=== PATIENT | male | born 1980 | race Two or more races ===

== ENCOUNTER 2016-12-16 19:29 | Emergency (ER) | payer MEDICAID, OTHER ==
[~2016-12-16] VITALS: Ht 185.4 cm; Wt 72.6 kg
[2016-12-16 21:10] LABS: Basophils # (auto) 0.1 uL; Basophils % (auto) 0.6 % (0.0-2.0); Eosinophils # (auto) 0.2 uL; Eosinophils % (auto) 2.6 % (0.0-7.0); Hematocrit 44.4 % (41.0-53.0); Lymphocytes # (auto) 1.7 uL; Lymphocytes % (auto) 20.3 % (10.0-50.0); Mean Corpuscular Hgb Conc. 33.8 g/dL (32.0-36.0); Mean Corpuscular Volume 85.8 fL (80.0-100.0); Mean Platelet Volume 8.3 fL (7.4-10.4); Monocytes # (auto) 0.3 uL; Neutrophils # (auto) 6.2 uL; Neutrophils % (auto) 72.5 % (37.0-80.0); Platelet Count (auto) 374 10^3/uL (140-450); Red Cell Distribution Width 15.7 % (11.6-16.0); White Blood Cell 8.6 10^3/uL (4.4-10.8)
[2016-12-16 21:33] LABS: Albumin 3.9 g/dL (3.4-5.0); BUN/Creatinine Ratio 18.2; Calcium 9.1 mg/dL (8.5-10.1)
[2016-12-16 21:45] LABS: Bilirubin, Total 0.3 mg/dL (0.2-1.0); Total Protein 7.7 g/dL (6.4-8.2)
[2016-12-17 00:16] LABS: Urine Bilirubin Negative (Negative); Urine Blood Negative /uL (Negative); Urine Color Yellow (Yellow); Urine Glucose Normal (Normal); Urine Ketone TRACE (Negative); Urine Mucus FEW (None Seen); Urine RBC 3 /hpf (0 - 3); Urine Sperm PRESENT /hpf (None Seen); Urine Urobilinogen Normal (Negative); Urine pH 5.5 (5.0-8.0)
[2016-12-17 00:18] LABS: Urine Nitrite POSITIVE (Negative)
[2016-12-17 05:23] VITALS: BP 109/65
[2016-12-17] MEDS ORDERED: HYDROcodone-ACET 10/325MG TAB PO ONE (07:30)
== END 2016-12-17 08:00 | disposition home or self-care (01) ==
LOC: ER 19:48
DX: N39.0 Urinary tract infection, site not specified (principal); R31.9 Hematuria, unspecified; E78.5 Hyperlipidemia, unspecified; I10 Essential (primary) hypertension
CPT/HCPCS: 36415; 80053; 81001; 85025

== ENCOUNTER 2022-01-26 17:16 | Emergency (ER) | payer OTHER, MEDICAID ==
[~2022-01-26] VITALS: Ht 175.3 cm; Wt 86.2 kg
[2022-01-26] MEDS ORDERED: RIVA20TA PO (20:05)
[2022-01-26 21:42] VITALS: BP 111/73
== END 2022-01-26 21:16 | disposition home or self-care (01) ==
LOC: ER 17:16
DX: I82.403 Acute embolism and thrombosis of unspecified deep veins of lower extremity, bilateral (principal)
CPT/HCPCS: 93970

== ENCOUNTER 2022-03-03 17:58 | Emergency (ER) | payer OTHER, MEDICAID ==
[~2022-03-03] VITALS: Ht 175.3 cm; Wt 85.0 kg
[~2022-03-03 17:58] MED LIST: RIVA20TA PO
[2022-03-03 18:51] VITALS: BP 109/68
== END 2022-03-03 23:11 | disposition left against medical advice (07) ==
LOC: ER 17:58
DX: R50.9 Fever, unspecified (principal); Z53.21 Procedure and treatment not carried out due to patient leaving prior to being seen by health care provider

== ENCOUNTER 2022-09-16 15:50 | Inpatient (IN) | payer OTHER, MEDICAID ==
[~2022-09-16] VITALS: Ht 175.3 cm; Wt 86.2 kg
[2022-09-16 17:07] LABS: Albumin 3.7 g/dL (3.4-5.0); Calcium 8.6 mg/dL (8.5-10.1); Potassium 4.2 mmol/L (3.5-5.1)
[2022-09-16 17:09] LABS: Bilirubin, Total 0.5 mg/dL (0.2-1.0); Total Protein 7.5 g/dL (6.4-8.2)
[2022-09-16 17:45] LABS: INR 1.06 (0.9-1.15); Partial Thromboplastin Time 29.7 sec (24.6-33.4)
[2022-09-16 17:56] LABS: White Blood Cell 5.8 10^3/uL (4.4-10.8)
[2022-09-16 18:01] LABS: Basophils # (auto) 0.1 10 ^3/uL (0-0.2); Basophils % (auto) 1.4 % (0.0-2.0); Eosinophils # (auto) 0.3 10 ^3/uL (0-0.8); Eosinophils % (auto) 4.7 % (0.0-7.0); Hematocrit 46.3 % (41.0-53.0); Hemoglobin 16.1 g/dL (13.5-17.5); Lymphocytes # (auto) 1.8 10 ^3/uL (0.4-5.4); Lymphocytes % (auto) 30.9 % (10.0-50.0); Mean Corpuscular Hemoglobin 30.3 pg (28.0-32.0); Mean Corpuscular Hgb Conc. 34.7 g/dL (32.0-36.0); Mean Corpuscular Volume 87.4 fL (80.0-100.0); Monocytes # (auto) 0.2 10 ^3/uL (0-1.3); Monocytes % (auto) 3.7 % (0.0-12.0); Neutrophils # (auto) 3.5 10 ^3/uL (1.6-8.6); Neutrophils % (auto) 59.3 % (37.0-80.0); Nucleated Red Blood Cells % 0.2 %; Red Cell Distribution Width 13.9 % (11.8-14.3)
[2022-09-16] MEDS ORDERED: ACETAMINOPHEN 325 MG TAB PO PRN (18:45)
[2022-09-16] MEDS ORDERED: PANTOPRAZOLE 40 MG/10 ML VIAL INJ IV ONE (18:45)
[2022-09-16] MEDS ORDERED: FUROSEMIDE 20 MG/2 ML VIAL IV ONE (18:45)
[2022-09-16] MEDS ORDERED: GABA300C10 PO (23:00)
[2022-09-16] MEDS ORDERED: BACL10TA PO (23:01)
[2022-09-16] MEDS ORDERED: CLON-853 PO (23:01)
[2022-09-17] MEDS: clonazePAM 0.5 MG TAB PO SCH ×3 (02:00→21:39)
[2022-09-17] MEDS ORDERED: BACLOFEN 10 MG TAB PO SCH (06:00)
[2022-09-17] MEDS ORDERED: GABAPENTIN 300 MG CAP PO SCH (06:00)
[2022-09-17 06:05] LABS: Basophils # (auto) 0.1 10 ^3/uL (0-0.2); Basophils % (auto) 1.2 % (0.0-2.0); Eosinophils # (auto) 0.3 10 ^3/uL (0-0.8); Eosinophils % (auto) 6.4 % (0.0-7.0); Hematocrit 43.1 % (41.0-53.0); Lymphocytes # (auto) 2.1 10 ^3/uL (0.4-5.4); Lymphocytes % (auto) 39.9 % (10.0-50.0); Mean Corpuscular Hemoglobin 30.1 pg (28.0-32.0); Mean Corpuscular Hgb Conc. 34.7 g/dL (32.0-36.0); Mean Corpuscular Volume 86.7 fL (80.0-100.0); Monocytes # (auto) 0.3 10 ^3/uL (0-1.3); Monocytes % (auto) 5.1 % (0.0-12.0); Neutrophils # (auto) 2.5 10 ^3/uL (1.6-8.6); Neutrophils % (auto) 47.4 % (37.0-80.0); Nucleated Red Blood Cells % 0.2 %; Red Blood Cells 4.97 10^6/uL (4.5-5.90); Red Cell Distribution Width 14.2 % (11.8-14.3); White Blood Cell 5.4 10^3/uL (4.4-10.8)
[2022-09-17 06:26] LABS: Albumin 3.4 g/dL (3.4-5.0); Calcium 8.1 mg/dL (8.5-10.1); Potassium 3.7 mmol/L (3.5-5.1)
[2022-09-17 06:27] LABS: BUN/Creatinine Ratio 17.9
[2022-09-17 06:37] LABS: Bilirubin, Total 0.5 mg/dL (0.2-1.0); Total Protein 6.8 g/dL (6.4-8.2)
[2022-09-17] MEDS: GABAPENTIN 300 MG CAP PO SCH ×3 (08:50→21:38)
[2022-09-17] MEDS: BACLOFEN 10 MG TAB PO PRN ×3 (08:57→21:39)
[2022-09-17] MEDS ORDERED: ENOXAPARIN SOD 40 MG/0.4 ML SYRINGE SC SCH (10:00)
[2022-09-17] MEDS: PANTOPRAZOLE 40 MG/10 ML VIAL INJ IV SCH (10:37)
[2022-09-17] MEDS: cefTRIAXone 1GM/50ML D5W 50 ML IV ONE ×2 (13:22→13:27)
[2022-09-17 17:00] VITALS: BP 119/80
[2022-09-17 19:19] LABS: Urine Bacteria NONE SEEN /hpf (None Seen); Urine Blood Negative /uL (Negative); Urine Mucus FEW (None Seen); Urine Specific Gravity 1.019 (1.001-1.035); Urine WBC 14 /hpf (0 - 3)
[2022-09-17] MEDS ORDERED: TRAZ100T3 PO (19:23)
[2022-09-17] MEDS ORDERED: DOCU-190 PO (19:23)
[2022-09-17 22:00] VITALS: BP 110/68
[2022-09-18 05:00] VITALS: BP 96/56
[2022-09-18] MEDS: GABAPENTIN 300 MG CAP PO SCH (05:24)
[2022-09-18] MEDS ORDERED: NITR-52 PO (08:15)
[2022-09-18] MEDS: BACLOFEN 10 MG TAB PO PRN (08:55)
[2022-09-18] MEDS: PANTOPRAZOLE 40 MG/10 ML VIAL INJ IV SCH (08:55)
[2022-09-18 09:00] VITALS: BP 109/67
[2022-09-18] MEDS ORDERED: cefTRIAXone 1GM/50ML D5W 50 ML IV SCH (09:00)
[2022-09-18 09:56] VITALS: BP 106/75
[2022-09-20 09:35] LABS: Hepatitis B Surface Antibody Negative (Negative)
[2022-09-20 09:58] LABS: Hepatitis A Total Antibody Positive (Negative)
[2022-09-20 12:21] LABS: Hepatitis C Antibody Negative (Negative)
== END 2022-09-18 12:12 | disposition home or self-care (01) | DRG 689 ==
LOC: ER 15:50 → OVERFLOW 18:39 → CENTRAL 09-17 16:40
PROVIDERS: ADMIT Nurse Practitioner Family; ATTEND Family Medicine
DX: N30.90 Cystitis, unspecified without hematuria (principal); G82.50 Quadriplegia, unspecified; R18.8 Other ascites; E78.5 Hyperlipidemia, unspecified; I10 Essential (primary) hypertension; Z20.822 Contact with and (suspected) exposure to COVID-19; Z79.01 Long term (current) use of anticoagulants
CPT/HCPCS: 36415; 74176; 80053; 81001; 82140; 82728; 83735; 85025; 85610; 85730; 86704; 86706; 86708; 86803; 87086; 87177; 87340; 87426; 87493; 93970; 96374; 96375; C9113; G0378; J0696

== ENCOUNTER 2023-05-24 17:11 | Emergency (ER) | payer OTHER, MEDICAID ==
[~2023-05-24] VITALS: Ht 182.9 cm; Wt 84.0 kg
[~2023-05-24 17:11] MED LIST changes: +BACL10TA PO; +CLON-853 PO; +DOCU-190 PO; +GABA-1250 PO; +NITR-52 PO; +TRAZ-228 PO
[2023-05-24 20:13] LABS: Basophils # (auto) 0.1 10 ^3/uL (0-0.2); Eosinophils # (auto) 0.3 10 ^3/uL (0-0.8); Eosinophils % (auto) 4.7 % (0.0-7.0); Hematocrit 43.6 % (41.0-53.0); Hemoglobin 14.7 g/dL (13.5-17.5); Lymphocytes # (auto) 2.5 10 ^3/uL (0.4-5.4); Lymphocytes % (auto) 36.3 % (10.0-50.0); Mean Corpuscular Hgb Conc. 33.9 g/dL (32.0-36.0); Mean Corpuscular Volume 88.7 fL (80.0-100.0); Monocytes # (auto) 0.4 10 ^3/uL (0-1.3); Monocytes % (auto) 5.4 % (0.0-12.0); Neutrophils # (auto) 3.6 10 ^3/uL (1.6-8.6); Neutrophils % (auto) 52.6 % (37.0-80.0); Nucleated Red Blood Cells % 0.1 %; Red Blood Cells 4.91 10^6/uL (4.5-5.90); Red Cell Distribution Width 14.5 % (11.8-14.3); White Blood Cell 6.8 10^3/uL (4.4-10.8)
[2023-05-24 20:33] LABS: Alanine Aminotransferase 33 U/L (7-40); Albumin 4.5 g/dL (3.2-4.8); Alkaline Phosphatase 78 U/L (46-116); Anion Gap 8 (5-15); Aspartate Aminotransferase 17 U/L (13-40); BUN/Creatinine Ratio 14.5 (10.0-20.0); Blood Urea Nitrogen 10 mg/dL (9-23); Calcium 9.2 mg/dL (8.7-10.4); Carbon Dioxide 25 mmol/L (20-30); Chloride 106 mmol/L (98-107); Glucose 91 mg/dL (74-106); Sodium 139 mmol/L (136-145)
[2023-05-24 20:34] LABS: Bilirubin, Total 0.4 mg/dL (0.2-1.0)
[2023-05-24 20:56] LABS: Urine Bacteria FEW /hpf (None Seen); Urine Blood Negative /uL (Negative); Urine Clarity Clear (Clear); Urine Color Yellow (Yellow); Urine Protein, UAD Negative (Negative); Urine Urobilinogen Normal (Negative); Urine WBC 12 /hpf (0 - 3)
[2023-05-24] MEDS ORDERED: NITR-52 PO (21:33)
[2023-05-24 22:22] VITALS: BP 111/77; TEMP 97.9
[2023-05-24 22:23] VITALS: PULSE 75; RESP 20; O2SAT 96
== END 2023-05-24 22:32 | disposition home or self-care (01) ==
LOC: ER 17:11
DX: N39.0 Urinary tract infection, site not specified (principal); R31.9 Hematuria, unspecified; I10 Essential (primary) hypertension; E78.5 Hyperlipidemia, unspecified; Z79.899 Other long term (current) drug therapy
CPT/HCPCS: 36415; 74176; 80053; 81001; 85025